=== PATIENT | female | born 1970 | race African-American/Black ===

== ENCOUNTER → 2024-08-10 | Day surgery (SDC) | payer OTHER ==
[~2024-08-10] MED LIST: DEXAMETHASONE SOD PHOS INJ 4 MG/ML SDV ONE; HYDROCHLOROTHIA25 MG PO; KETAMINE 50MG/5ML SYR ONE; KETOROLAC TROMETHAMINE 30 MG/ML VIAL ONE; LACTATED RINGER'S 1,000 ML ONE; LATANOPROST2.5 ML OP; LIDOCAINE HCL 2% LOCAL INJ 5 ML SDV VIAL INJ ONE; LYRICA50 MG PO; METOCLOPRAMIDE HCL 10 MG/2ML VIAL ONE; ONDANSETRON HCL INJ 2MG/ML 2ML 2 MG/ML VIAL ONE; PROPOFOL IV EMULSION 10 MG/ML 20 ML VIAL ONE; PROPOFOL IV EMULSION 50 ML IV ONE; VITAMIN D350 MCG PO; VYZULTA2.5 ML OU
[2024-08-10 18:25] VITALS: TEMP 97.4
[2024-08-10 18:45] VITALS: BP 140/87; PULSE 85; RESP 17; O2SAT 98
== END | disposition home or self-care (01) ==
LOC: OR 14:49 → EDSEX 15:30
PROVIDERS: ATTEND Internal Medicine Gastroenterology
DX: Z12.11 Encounter for screening for malignant neoplasm of colon (principal); K29.50 Unspecified chronic gastritis without bleeding; K31.89 Other diseases of stomach and duodenum; K20.90 Esophagitis, unspecified without bleeding; K44.9 Diaphragmatic hernia without obstruction or gangrene; K21.9 Gastro-esophageal reflux disease without esophagitis; K57.30 Diverticulosis of large intestine without perforation or abscess without bleeding; K64.8 Other hemorrhoids; Z98.84 Bariatric surgery status; I10 Essential (primary) hypertension; Z71.89 Other specified counseling; J44.9 Chronic obstructive pulmonary disease, unspecified; E55.9 Vitamin D deficiency, unspecified; H40.9 Unspecified glaucoma; Z01.810 Encounter for preprocedural cardiovascular examination; Z68.41 Body mass index [BMI] 40.0-44.9, adult; Z71.3 Dietary counseling and surveillance
CPT/HCPCS: 43239; 45378; 93005; J1100; J1885; J2003; J2405; J2470; J2704 ×2; J2765; J7121